=== PATIENT | female | born 1955 | race Asian ===

== ENCOUNTER → 2021-03-03 | Outpatient (CLI) | payer OTHER ==
[~2021-03-03] MED LIST: LIPITOR 10 MG10 M1 PO; VITAMIN C500 M1 PO
== END ==
LOC: LAB 03-02 09:38
PROVIDERS: Student in an Organized Health Care Education/Training Program; ATTEND Specialist
DX: Z01.812 Encounter for preprocedural laboratory examination (principal); Z20.822 Contact with and (suspected) exposure to COVID-19

== ENCOUNTER → 2021-03-05 | Outpatient (CLI) | payer OTHER ==
[~2021-03-05] VITALS: Ht 160 cm; Wt 52.2 kg
--- NOTE | 2021-03-08 18:06 | PATH ---
[facility] [address] [place] [address] PATHOLOGY RPT PROCEDURE Name: TERRI MCNAMARA Room #: REG MELISSA Mullins.#: [id number] Admission: 03/05/21 Date of : 57 Discharge: Report #: [id number] Path Case #: [id number] [facility] Accession Number: [id number] . 01 Material submitted: . PART A: colon - ASCENDING COLON POLYP X5. Modifiers: ascending PART B: colon - TRANSVERSE COLON POLYP. Modifiers: transverse PART C: sigmoid colon - SIGMOID COLON POLYP . 01 Clinical history: . HX OF POLYPS . 02 Diagnosis: A. Polyp x5, ascending colon polyp, endoscopic biopsy: - Tubular adenoma, multiple fragments without any high-grade dysplasia. - Hyperplastic polyp (one fragment); negative for dysplasia. . B. Polyp, transverse colon polyp, endoscopic biopsy: - Tubular adenoma. - Negative for high-grade dysplasia. . C. Polyp, sigmoid colon polyp, endoscopic biopsy: - Tubular adenoma. - Negative for high-grade dysplasia. (IUV:brannon; 03/08/2021) QMS 03/08/2021 1523 Local . 02 Electronically signed: . Marisa Aguilar MD, Pathologist NPI- [id number] . 01 Gross description: . A. Received in formalin labeled "Terri Mcnamara, ascending colon polyp biopsy" are multiple fragments of perdomo-brown soft tissue measuring in aggregate 1.2 x 0.4 x 0.3 cm. The specimen is submitted entirely in A1. . B. Received in formalin labeled "Terri Mcnamara, transverse colon polyp" are multiple fragments of perdomo-brown soft tissue measuring in aggregate 0.7 x 0.3 x 0.2 cm. The specimen is submitted entirely in B1. . C. Received in formalin labeled "Terri Mcnamara, sigmoid colon polyp biopsy" is a fragment of perdomo-brown soft tissue measuring 0.7 x 0.6 x 0.3 cm. The specimen is submitted entirely in C1.([facility]; 03/06/2021) GZA/GZA 03/08/2021 1522 Local . 02 Pathologist provided ICD-10: D12.2, D12.3, D12.5, K63.5 [place] [address] PATHOLOGY RPT PROCEDURE Name: TERRI MCNAMARA Room #: REG CL Susanna.#: [id number] Admission: 03/05/21 Date of : 57 Discharge: Report #: [id number] Path Case #: [id number] . 02 CPT . 863388, [id number], [id number] Specimen Comment: A courtesy copy of this report has been sent to [phone] Specimen Comment: [phone] Specimen Comment: Report sent to / DR COULTER Performed at: [address] [facility], [place] [id number] MD Leonardo Quinonez MD Phone: [phone] Performed at: [address] [facility] [id number] MD Marisa Aguilar MD Phone: [phone]
--- NOTE | 2021-03-08 18:14 | P ---
[facility] [place] [place] [address] PROCEDURE REPORT Name: KATIA MERCADO Room #: REG [facility].#: [id number] Admission: 03/05/21 Attend Phys: Odin Rehman Discharge: Date of : 57 Report #: [id number] THIS REPORT FOR: cc: Domenic Luna MD, Neal A. MD McElhinney, Christian C. MD ~ DOC #: [id number] cc: MD Odin Jewell MD DATE OF SERVICE: 03/05/2021 PROCEDURE PERFORMED: Colonoscopy with polypectomies. HISTORY OF PRESENT ILLNESS: The patient is a 65-year-old female with a history of tubular adenomatous polyps removed 5 years ago. She is here for routine followup. She denies any symptoms. No family history of colon cancer. DESCRIPTION OF PROCEDURE: The risks and benefits of the procedure were explained to the patient, those risks including but not limited to bleeding, perforation, and the risk of sedation. She understood these risks and gave informed consent. Sedation was given using propofol per anesthesia. Next, a digital rectal exam was initially performed, which was normal. Next, using a pediatric Olympus colonoscope, scope was placed in the patient's anus and advanced under direct vision to the cecum. The overall prep was excellent. The cecum and ileocecal valve were normal in appearance. Five 3-4 mm sessile polyps were noted in the ascending colon, all were removed by cold forceps, otherwise, normal. In the transverse colon, a 4 mm sessile polyp was noted and also removed with cold forceps. The descending colon was normal. A few small scattered diverticula were noted in the sigmoid colon. Also noted was a 6 mm sessile polyp. This was removed by snare cautery. The rectal mucosa was normal. On retroflexion, no abnormalities were noted. The scope was then withdrawn and the procedure terminated. The patient tolerated the procedure well. IMPRESSION: 1. Multiple small colonic polyps as described above. 2. Mild sigmoid diverticulosis. 3. Otherwise, normal colonoscopy. RECOMMENDATIONS: 1. Await biopsy results. 2. Repeat colonoscopy in 5 years. Thank you for allowing me to participate in her care. [address] [address] PROCEDURE REPORT Name: KATIA MERCADO Room #: REG MELISSA Patton#: [id number] Admission: 03/05/21 Attend Phys: Odin Rehman Discharge: Date of : 57 Report #: [id number] Odin Vuong MD CCM/KYLE <ELECTRONICALLY SIGNED> By: Odin Vuong MD 03/08/21 1814 0810 [id number] Odin Vuong MD /ashish
== END | disposition home or self-care (01) ==
LOC: GI
PROVIDERS: ATTEND Specialist
DX: Z12.11 Encounter for screening for malignant neoplasm of colon (principal); Z86.010 Personal history of colon polyps; D12.2 Benign neoplasm of ascending colon; D12.4 Benign neoplasm of descending colon; D12.5 Benign neoplasm of sigmoid colon; K57.30 Diverticulosis of large intestine without perforation or abscess without bleeding; E78.00 Pure hypercholesterolemia, unspecified; Z98.890 Other specified postprocedural states; Z79.899 Other long term (current) drug therapy
CPT/HCPCS: 62110; 62900